=== PATIENT | male | born 1980 ===

== ENCOUNTER 2021-09-06 17:11 | Emergency (ER) | payer SELFPAY ==
--- NOTE | 2021-09-07 00:59 | Emergency Department Report ---
ED General Adult HPI - General Chief complaint: Pain General Stated complaint: GENERAL PAIN Time Seen by Provider: 09/07/21 00:57 Source: patient Mode of arrival: Ambulatory Limitations: No Limitations - History of Present Illness Initial comments: Patient is a 41-year-old male who presents with left-sided neck and shoulder pain that is been going on for the last 3 days patient states that the pain is an 8 out of 10 hurts more when he walks nothing makes it better. He states this occurred when he was lifting a tire into his car. Patient denies having shortness of breath or any nausea any hemoptysis. - Related Data Previous Rx's Medication Instructions Recorded Last Taken Type Naproxen [Naprosyn] 375 mg PO BID #20 tablet 09/07/21 Unknown Rx Allergies Allergy/AdvReac Type Severity Reaction Status Date / Time No Known Allergies Allergy Verified 09/06/21 18:48 ED Review of Systems ROS: Stated complaint: GENERAL PAIN Other details as noted in HPI Constitutional: denies: chills, fever Eyes: denies: eye pain, eye discharge, vision change ENT: denies: ear pain, throat pain Respiratory: denies: cough, shortness of breath, wheezing Cardiovascular: denies: chest pain, palpitations Endocrine: no symptoms reported Gastrointestinal: denies: abdominal pain, nausea, diarrhea Genitourinary: denies: urgency, dysuria Musculoskeletal: myalgia. denies: back pain, joint swelling, arthralgia Skin: denies: rash, lesions Neurological: denies: headache, weakness, paresthesias Psychiatric: denies: anxiety, depression Hematological/Lymphatic: denies: easy bleeding, easy bruising ED Past Medical Hx - Past Medical History Previous Medical History?: No - Surgical History Past Surgical History?: No - Medications Home Medications: Home Medications Medication Instructions Recorded Confirmed Last Taken Type Naproxen [Naprosyn] 375 mg PO BID #20 tablet 09/07/21 Unknown Rx ED Physical Exam - General Limitations: No Limitations General appearance: alert, in no apparent distress - Head Head exam: Present: atraumatic, normocephalic - Eye Eye exam: Present: normal appearance - ENT ENT exam: Present: mucous membranes moist - Neck Neck exam: Present: normal inspection - Respiratory Respiratory exam: Present: normal lung sounds bilaterally. Absent: respiratory distress - Cardiovascular Cardiovascular Exam: Present: regular rate, normal rhythm. Absent: systolic murmur, diastolic murmur, rubs, gallop - GI/Abdominal GI/Abdominal exam: Present: soft, normal bowel sounds - Rectal Rectal exam: Present: deferred - Extremities Exam Extremities exam: Present: normal inspection, tenderness (Of left shoulder and left neck) - Back Exam Back exam: Present: normal inspection - Neurological Exam Neurological exam: Present: alert, oriented X3 - Psychiatric Psychiatric exam: Present: normal affect, normal mood - Skin Skin exam: Present: warm, dry, intact, normal color. Absent: rash ED Course Vital Signs 09/06/21 18:48 Temperature 98.3 F Pulse Rate 76 Respiratory 16 Rate Blood Pressure 165/97 [Left] O2 Sat by Pulse 99 Oximetry ED Medical Decision Making - Radiology Data Radiology results: report reviewed, image reviewed Chest x-ray: Shows no acute cardiopulmonary disease - Medical Decision Making Chief medical diagnosis: Pneumonia Differential medical diagnosis: cervical strain, torticollis I will get x-ray and I will prescribe patient with oral pain medication. Critical care attestation.: If time is entered above; I have spent that time in minutes in the direct care of this critically ill patient, excluding procedure time. ED Disposition Clinical Impression: Neck ache Left shoulder pain Qualifiers: Chronicity: acute Qualified Code(s): M25.512 - Pain in left shoulder Disposition: 01 HOME / SELF CARE / HOMELESS Is pt being admited?: No Does the pt Need Aspirin: No Condition: Stable Instructions: How to Use Cold Therapy, [id number], Musculoskeletal Pain, How to Use Cold Therapy Prescriptions: Naproxen [Naprosyn] 375 mg PO BID #20 tablet Referrals: GENO WU MD [Primary Care Provider] - 3-5 Days ADELE TANG MD [Referring] - 3-5 Days
--- NOTE | 2021-09-07 01:18 | XRay Report ---
CHEST 2 VIEWS INDICATION / CLINICAL INFORMATION: cough. COMPARISON: None available. FINDINGS: SUPPORT DEVICES: None. HEART / MEDIASTINUM: No significant abnormality. LUNGS / PLEURA: No significant pulmonary or pleural abnormality. No pneumothorax. ADDITIONAL FINDINGS: No significant additional findings. IMPRESSION: 1. No acute findings. Signer Name: Cameron Noel DO Signed: 09/07/2021 1:13 AM Workstation Name: [id number]
[2021-09-07 01:57] VITALS: BP 150/90
== END 2021-09-07 01:56 | disposition home or self-care (01) ==
LOC: ED 17:11
DX: M54.2 Cervicalgia (principal); M25.512 Pain in left shoulder; Z79.899 Other long term (current) drug therapy
CPT/HCPCS: 71046; 99283